=== PATIENT | female | born 1980 | race American Indian/Alaskan Native ===

== ENCOUNTER → 2016-11-21 | Outpatient (CLI) | payer OTHER ==
--- NOTE | 2016-11-21 17:31 | US ---
Dear Dr. Dudley, Thank you for sending your patient, Camila Hooper, to us for a follow-up US to assess cervical length after cerclage placement. As you know, the patient is a 36 y.o. G5, P0130 at 16 weeks and 1 days wit h an EDC of 05/07/17 based on LMP and 11 week US. Her is complicated by history of a 2nd tri mester loss at 20 weeks due to cervical insufficiency. Due to this history, she had a history indicat ed cerclage placed at 14 weeks (Cardenas cerclage, single stitch). Camila's OB history is as follows: - 1998: TAB - 2006: SAB @ 14 weeks, fetus with increased NT but normal CVS - 2009: TAB - 2016: Cervical insufficiency with 3 cm dilation at 20 weeks. Presented the following day for cercla ge with acute chorio & abruption. Genetic Screening: NIPT neg US FINDINGS: Number of fetuses: 1 Placental location: Posterior presentation: Breech MVP: 2.8 cm Heart Rate: 150 bpm Transvaginal US: - Cervical Length: 3.1 cm with 0.5 cm distal to the stitch. No evidence of funneling or shortening wi th Valsalva. Digital Exam: Stitch intact and not on tension. Approximately 1 cm of cervix distal to the stitch. Os closed. IMPRESSION: Today, the cervical US was very difficult given the position of the cervix. The limited amount of cer vical stroma distal to the stitch was confirmed on digital exam. The patient reports on a minor episo de of spotting, but no cramping. She will start 17-OHP this week. Given the minimal cervical tissue d istal to the stitch, I am having her return in 1 week for a repeat transvaginal US. If there is naman rn for progressive shortening, I will consider sending her to the [facility] for placement of an magda tional, more proximal stitch. Thank you again for sending this patient to see us today. Approximately 15 minutes were spent with th is patient today with 12 minutes of this time spent in direct face to face counseling regarding today 's US findings and our recommendations. Please contact me with any questions at . Bhavna Marc MD Maternal- Medicine
--- NOTE | 2016-11-21 18:40 | US ---
OB Sonogram, limited (transabdominal and transvaginal) History: Check cervical length post cerclage placement, 16 weeks 1 day, EDC May 07, 2017, history of second trimester loss at 20 weeks due to cervical insufficiency Comparison: none Technique: Transvaginal sonography is added to best evaluate the cervix. Findings: There is a single viable intrauterine gestation in breech presentation. heart rate = 150 beats per minute. The placenta is posterior. The cervix measures 3.1 cm transabdominally with 0.5 cm distal to the cerclage. There is no evidence for funneling of the internal os or shortening of th e cervix with Valsalva maneuver. Impression: Small amount of cervical tissue distal to the cerclage. The cervix is closed. This report should be read in conjunction with the consultation by Dr. Bhavna Marc.
== END ==
LOC: FIMAGING 12:44
PROVIDERS: ATTEND Obstetrics & Gynecology Maternal & Fetal Medicine
DX: O34.32 Maternal care for cervical incompetence, second trimester (principal); O09.92 Supervision of high risk pregnancy, unspecified, second trimester; Z3A.16 16 weeks gestation of pregnancy

== ENCOUNTER → 2016-11-26 | Outpatient (CLI) | payer OTHER ==
--- NOTE | 2016-11-26 11:35 | US ---
Dear Dr. Dudley, Thank you for sending your patient, Camila Hooper, to us for a follow-up US to assess cervical length . As you know, the patient is a 36 y.o. G5, P0130 at 16 weeks and 6 days with an EDC of 05/07/17 based on LMP and 11 week US. Her is complicated by AMA, maternal obesity, and history of cervica l insufficiency with a prior loss at 20 weeks. She had a prophylactic Cardenas cerclage placed at 14 weeks in this . She was seen at [facility] on 11/24 for vaginal spotting. She was diagnosed with BV. There was no evidence of labor or cerclage failure at that time. Today, she is without complaints. Camila's AFP level returned borderline elevated at 2.39 MoMs. She has had reassuring NIPT results. US FINDINGS: Number of fetuses: 1 Placental location: Fundal with anterior and posterior components, no previa presentation: Vertex MVP: 3.4 cm Heart Rate: 152 bpm Limited Early Anatomy: - Normal shape of the calvarium, the posterior fossa and cisterna magna were not well visualized - Abdominal cord insertion was not well visualized - Sacral spine visualized coronally without evidence of vertebral splaying or asymmetry. Longitudinal spine view not well seen. Transvaginal US: Cervical Length: - 3.3 cm in total length without evidence of funneling or insufficiency - Internal Os to Stitch: 2.3 cm - Stitch to External OS: 0.97 cm IMPRESSION: 1. History of Cervical Insufficiency with Cerclage in Place: Today, the cervical length on transvagi nal US is stable at 3.3 cm with approximately 1 cm of cervix distal to the stitch. There is no eviden ce of insufficiency or funneling. - Continue weekly 17-OHP injections - Cervical length measurement in 2 weeks - Reviewed labor symptoms 2. Borderline AFP: Camila's AFP is 2.4 MoM. While the standard cut-off is 2.5 MoM, this result was fl agged by the reporting lab as elevated. We reviewed that this can be associated with open neural tube defects and abdominal wall defects. Today, the calvarium appears normal in shape, but the posterior fossa and sacral spine were not well visualized. The abdominal cord insertion was not well seen. We d iscussed that while no gross structural abnormalities were seen today, the standard US views used to clear the spine and abdominal wall were not well seen due to position and maternal habitus. Las tly, we discussed that increased AFP can also be associated with placental pathology which may predis pose the fetus to IUGR or her to preeclampsia. - Anatomy US at 20 weeks - Attempt to evaluate the spine, abdominal cord insert, and posterior fossa at her US in 2 week s Thank you again for sending this patient to see us today. Approximately 15 minutes were spent with th is patient today with 12 minutes of this time spent in direct face to face counseling regarding today 's US findings and our recommendations. Please contact me with any questions at . Bhavna Marc MD Maternal- Medicine
--- NOTE | 2016-11-26 18:52 | US ---
Ultrasound Obstetric Follow Up Indication: Cerclage. The estimated gestational age by LMP is 16 weeks and 6 days yielding an EDC o f May 07, 2017. Comparison: November 21, 2016. Findings: Number: 1 Presentation: Vertex Placental location: Fundal Cervix: Evaluate transvaginally and measures 3.3 cm Amniotic MVP: 3.4 cm FHR: 152 bpm Impression: 1. Living harry in vertex presentation. 2. Cerclage with cervix appearing closed measuring 3.3 cm 3. Recommend followup full anatomy scan at 20 weeks gestation. 4. Please see Dr. Bhavna Marc's consult and recommendations.
== END ==
LOC: FIMAGING 08:39
PROVIDERS: ATTEND Obstetrics & Gynecology
DX: O34.32 Maternal care for cervical incompetence, second trimester (principal); O09.522 Supervision of elderly multigravida, second trimester; O09.92 Supervision of high risk pregnancy, unspecified, second trimester; O28.1 Abnormal biochemical finding on antenatal screening of mother; O26.22 Pregnancy care for patient with recurrent pregnancy loss, second trimester; O99.212 Obesity complicating pregnancy, second trimester; E66.9 Obesity, unspecified; Z3A.16 16 weeks gestation of pregnancy